=== PATIENT | female | born 1975 | race African-American/Black ===

== ENCOUNTER 2023-01-14 16:57 | Emergency (ER) | payer SELFPAY ==
[~2023-01-14] VITALS: Ht 162.6 cm; Wt 74.8 kg
[2023-01-14 17:20] VITALS: BP 95/43; PULSE 71; RESP 20; TEMP 98.4; O2SAT 99
[2023-01-14 17:54] LABS: BASOPHILS % (AUTO) 0.3 % (0.0-2.0); EOSINOPHILS # (AUTO) 0.1 K/uL (0-0.4); EOSINOPHILS % (AUTO) 1.5 % (0.0-4.0); HEMATOCRIT 36.6 % (36-48); LYMPHOCYTES # (AUTO) 1.6 K/uL (2.5-16.5); LYMPHOCYTES % (AUTO) 17.9 % (20.5-51.1); MEAN CORPUSCULAR HEMOGLOBIN 27 pg (27-31); MEAN CORPUSCULAR HGB CONC 33 g/dL (33-37); MEAN CORPUSCULAR VOLUME 83.5 fL (80-94); MONOCYTES # (AUTO) 0.6 K/uL (0.8-1.0); MONOCYTES % (AUTO) 6.6 % (1.7-9.3); NEUTROPHILS # (AUTO) 6.6 K/uL (1.8-7.7); NEUTROPHILS % (AUTO) 73.7 % (42.2-75.2); PLATELET COUNT (AUTO) 264 K/uL (140-450); RED BLOOD CELL COUNT(AUTO) 4.38 MIL/uL (4.20-5.40); RED CELL DISTRIBUTION WIDTH 14.7 % (11.6-13.7)
[2023-01-14] MEDS ORDERED: PANTOPRAZOLE 40 MG INJ VIAL IVP ONE (17:55)
[2023-01-14] MEDS ORDERED: ONDANSETRON 4 MG/2 ML VIAL IVP ONE (17:55)
[2023-01-14] MEDS ORDERED: MORPHINE SULFATE 4 MG/ML SYR IVP ONE (17:55)
[2023-01-14] MEDS ORDERED: NACL 0.9% 1,000 ML IV ONE (17:55)
[2023-01-14 18:11] LABS: ALBUMIN 3.4 g/dL (3.4-5.0); ANION GAP 12.1 (8-16); CALCIUM 8.9 mg/dL (8.5-10.1); CARBON DIOXIDE 24.6 mmol/L (21-32); CREATININE 0.7 mg/dL (0.6-1.3); POTASSIUM 3.7 mmol/L (3.5-5.1); TOTAL BILIRUBIN 0.6 mg/dL (0.0-1.0)
[2023-01-14 18:26] LABS: APPEARANCE,URINE CLOUDY (CLEAR); BILIRUBIN,URINE NEGATIVE (NEGATIVE); BLOOD, URINE NEGATIVE (NEGATIVE); COLOR,URINE YELLOW (YELLOW); LEUKOCYTE ESTERASE ,URINE TRACE (NEGATIVE); NITRITE, URINE POSITIVE (NEGATIVE); PROTEIN,URINE TRACE (NEGATIVE); UGLUCOSE NEGATIVE (NEGATIVE)
[2023-01-14 18:40] LABS: BACTERIA,URINE >30 (MANY) /HPF (None Seen); MUCUS,URINE 2+ /LPF (None Seen); RBC,URINE 11-20 (MOD) /HPF (0-5); SQUAMOUS EPITHELIAL CELL,UR 4-10 (MOD) /LPF (0-3 (FEW)); WBC,URINE 0-5 /HPF (0-5)
[2023-01-14] MEDS ORDERED: ALUMINUM HYD/MAG/SIMETHICONE 30 ML UDC PO ONE (19:40)
[2023-01-14] MEDS ORDERED: KETOROLAC 15 MG/ML VIAL IVP ONE (19:40)
[2023-01-14] MEDS ORDERED: DICYCLOMINE HCL LIQUID 10 MG/5 ML UDC PO ONE (19:40)
[2023-01-14 20:30] VITALS: O2SAT 98
[2023-01-14] MEDS ORDERED: FAMO-90 PO (21:14)
[2023-01-14] MEDS ORDERED: ONDA-188 PO (21:14)
[2023-01-14] MEDS ORDERED: ACET-10509 PO (21:14)
[2023-01-14] MEDS ORDERED: CEFP200T20 PO (21:14)
[2023-01-14] MEDS ORDERED: BEN10 PO (21:14)
[2023-01-14 21:22] VITALS: BP 91/49; PULSE 55; RESP 14
== END 2023-01-14 21:22 | disposition home or self-care (01) ==
LOC: MED 16:57
DX: A08.4 Viral intestinal infection, unspecified (principal); K29.70 Gastritis, unspecified, without bleeding; N39.0 Urinary tract infection, site not specified; Z79.899 Other long term (current) drug therapy
CPT/HCPCS: 36415; 74176; 80053; 81001; 81025; 83690; 85025; 87086; 96361; 96374; 96375; 99285; C9113; J1885; J2270; J2405; J7030